=== PATIENT | female | born 1980 | race Asian ===

== ENCOUNTER 2022-01-14 17:43 | Emergency (ER) | payer OTHER ==
[2022-01-14] MEDS ORDERED: Acetaminophen 325 MG Tab PO ONE (18:29)
[2022-01-14 19:03] LABS: ESTIMATED GFR > 60 mL/min (>60)
== END 2022-01-14 20:32 | disposition home or self-care (01) ==
LOC: JD.ED 17:43
DX: R50.9 Fever, unspecified (principal); M54.50 Low back pain, unspecified; Z79.899 Other long term (current) drug therapy
CPT/HCPCS: 36415; 72100; 80053; 81001; 83735; 85025; 86140; 99283; A9270